=== PATIENT | female | born 1965 | race Caucasian/White ===

== ENCOUNTER 2018-01-10 10:13 | Outpatient (CLI) | payer OTHER ==
--- NOTE | 2018-01-10 11:34 | RAD ---
THREE VIEWS OF THE RIGHT WRIST: COMPARISON: 11/28/17. HISTORY: Distal radius fracture after a fall. FINDINGS: Three views of the right wrist show sclerosis involving the metaphysis of the distal radius represent ing a healing distal radial fracture. An associated ulnar styloid fracture is seen. The scaphoid is unremarkable without obvious fracture. IMPRESSION: Healing distal radius fracture. POS: [id number]
== END 2018-01-10 10:14 | disposition home or self-care (01) ==
LOC: SCSRAD 10:13
PROVIDERS: ATTEND Family Medicine
DX: S52.591D Other fractures of lower end of right radius, subsequent encounter for closed fracture with routine healing (principal)